=== PATIENT | female | born 1995 | race African-American/Black ===

== ENCOUNTER 2019-12-03 02:03 | Emergency (ER) | payer OTHER ==
[2019-12-03] MEDS ORDERED: Ondansetron PF 4 MG/2 ML Vial ONE (02:21)
[2019-12-03] MEDS ORDERED: Promethazine HCl 25 MG/ML VIAL ONE ×2 (02:21→06:19)
[2019-12-03 02:46] LABS: #Basophils 0.1 thou/uL (0.0-0.2); #Lymphocytes 1.6 thou/uL (1.20-3.40); #Monocytes 0.6 thou/uL (0.11-0.59); #Neutrophils 10.9 thou/uL (1.40-6.50); %Basophils 0.5 % (0.0-1.0); %Eosinophils 0.3 % (0.0-10.0); %Lymphocytes 11.9 % (21.0-51.0); %Monocytes 4.5 % (0.0-10.0); %Neutrophils 82.9 % (42.0-75.0); Hemoglobin 11.8 g/dL (12.0-16.0); Mean Corpuscular HGB CONC 33.5 g/dL (32.0-36.0); Mean Corpuscular Volume 86.8 fL (78.0-98.0); Mean Platelet Volume 8.2 fL (7.4-10.4); Platelet Count 290 thou/uL (130-400); RBC Distribution Width 13.8 % (11.5-14.5); Red Blood Cell (RBC) Count 4.05 mill/uL (4.20-5.40); White Blood Cell (WBC) Count 13.2 thou/uL (4.8-10.8)
[2019-12-03 03:00] LABS: ALT (SGPT) 16 U/L (8-55); AST (SGOT) 14 U/L (5-34); Albumin 3.9 g/dL (3.5-5.0); Alkaline Phosphatase 80 U/L (40-110); Anion Gap 16 mmol/L (10-20); BUN (Urea Nitrogen) 5 mg/dL (7.0-18.7); Bilirubin, Total 0.3 mg/dL (0.2-1.2); Calc. Creatinine Clearance 0 mL/min (70-130); Calcium 9.2 mg/dL (7.8-10.44); Carbon Dioxide 19 mmol/L (22-29); Chloride 105 mmol/L (98-107); Estimated GFR-MDRD Greater than 90; Globulin 3.5 g/dL (2.4-3.5); Glucose 103 mg/dL (70-105); Lipase 45 U/L (8-78); Protein, Total 7.4 g/dL (6.0-8.3); Sodium 137 mmol/L (136-145)
[2019-12-03] MEDS ORDERED: Multivitamins, Adult 10 ML, Thiamine HCl 100 MG, Folic Acid 1 MG in Dextrose 5 %-0.45 %... IV SCH (03:00)
== END 2019-12-03 07:00 | disposition home or self-care (01) ==
LOC: ERS 02:03
DX: O21.0 Mild hyperemesis gravidarum (principal); Z3A.18 18 weeks gestation of pregnancy
CPT/HCPCS: 36415; 80053; 83690; 85025; 96361; 96365; 96366; 96367; 96375; 96376; J2405; J2550; J3411; J7042